=== PATIENT | female | born 1940 | race African-American/Black ===

== ENCOUNTER 2022-04-08 09:38 | Emergency (ER) | payer MEDICARE, OTHER ==
[~2022-04-08] VITALS: Ht 157.5 cm; Wt 64.0 kg
[~2022-04-08 09:38] MED LIST: AMLO2.5T2; CALC-1042 PO; CHOL100046 PO; METF-414; METH2.5T PO; OMEG1CAP49 PO; [UNRECOGNIZED DRUG - CODE] PO
[2022-04-08 09:56] VITALS: BP 155/68
[2022-04-08] MEDS ORDERED: CALA177S9 TP (10:28)
== END 2022-04-08 10:42 | disposition home or self-care (01) ==
LOC: ER 09:38
DX: R21 Rash and other nonspecific skin eruption (principal); E11.9 Type 2 diabetes mellitus without complications; I10 Essential (primary) hypertension; M19.90 Unspecified osteoarthritis, unspecified site; Z79.84 Long term (current) use of oral hypoglycemic drugs
CPT/HCPCS: 99282

== ENCOUNTER 2023-06-03 13:59 | Emergency (ER) | payer OTHER ==
[~2023-06-03] VITALS: Ht 157.5 cm; Wt 62.0 kg
[~2023-06-03 13:59] MED LIST changes: +CALA177S9 TP
[2023-06-03 14:11] VITALS: O2SAT 97
[2023-06-03 14:59] LABS: HEMATOCRIT. 36.5 % (36.0-48.0); HEMOGLOBIN. 11.5 g/dL (12.0-16.0); MEAN CORPUSCULAR HEMOGLOBIN 23.9 pg (28.0-32.0); MEAN CORPUSCULAR HGB CONC 31.6 g/dL (31.0-37.0); MEAN CORPUSCULAR VOLUME 75.5 fL (81.0-99.0); MEAN PLATELET VOLUME 7.1 fl (7.4-10.4); PLATELET 328 x1000/uL (130-400); RED BLOOD CELL COUNT 4.83 mill/uL (4.2-5.4); RED CELL DISTRIBUTION WIDTH 14.9 % (11.6-14.6)
[2023-06-03 15:01] LABS: DIFFERENTIAL COMMENT 1
[2023-06-03 15:31] LABS: ALANINE AMINOTRANSFERASE 11 IU/L (10-49); ALBUMIN 4.5 g/dL (3.2-4.8); ASPARTATE AMINOTRANSFERASE 17 IU/L (<34); BILIRUBIN TOTAL 0.5 mg/dL (0.1-1.0); CARBON DIOXIDE 25 mEq/L (21-32); CHLORIDE 98 mEq/L (98-107); CREATININE 0.7 mg/dL (0.6-1.0); GLUCOSE 146 mg/dL (70-105); POTASSIUM 3.9 mEq/L (3.5-5.1); PROTEIN TOTAL 8.5 g/dL (6.0-8.3); SODIUM 133 mEq/L (136-145); UREA NITROGEN BLOOD 10 mg/dL (9-23)
[2023-06-03 15:33] LABS: MICROCYTOSIS 1+; PLATELET ESTIMATE NORMAL
[2023-06-03 15:48] LABS: TROPONIN I HIGH SENSITIVITY 4 ng/L (3.0-34)
[2023-06-03 19:25] LABS: TROPONIN I HIGH SENSITIVITY 4 ng/L (3.0-34)
[2023-06-03 19:49] VITALS: BP 165/80; PULSE 98; RESP 16; TEMP 98.6
== END 2023-06-03 19:53 | disposition home or self-care (01) ==
LOC: ER 13:59
DX: R05.9 Cough, unspecified (principal); E11.9 Type 2 diabetes mellitus without complications; I10 Essential (primary) hypertension; E78.00 Pure hypercholesterolemia, unspecified
CPT/HCPCS: 36415; 71045; 80053; 84484; 85025; 93005; 99285

== ENCOUNTER 2024-06-28 17:52 | Emergency (ER) | payer OTHER ==
[~2024-06-28] VITALS: Ht 157.5 cm; Wt 59.0 kg
[2024-06-28 17:58] VITALS: O2SAT 98
[2024-06-28] MEDS ORDERED: BENZ100C86 MT (21:33)
[2024-06-28 22:43] VITALS: BP 157/76; PULSE 98; RESP 16; TEMP 37.83636; O2SAT 98
== END 2024-06-28 22:50 | disposition home or self-care (01) ==
LOC: ER 17:52
DX: J06.9 Acute upper respiratory infection, unspecified (principal); B97.89 Other viral agents as the cause of diseases classified elsewhere; I10 Essential (primary) hypertension; E11.9 Type 2 diabetes mellitus without complications
CPT/HCPCS: 71046; 99283